=== PATIENT | female | born 1945 | race Caucasian/White ===

== ENCOUNTER 2018-03-07 08:32 | Outpatient (CLI) | payer OTHER, MEDICARE, BC ==
[~2018-03-07 08:32] MED LIST: CYAN-19 PO; ERGO500014 PO; ESTR1PAT TD; LEVO75TA PO; OMEP20CA4 PO
[2018-03-07 09:59] LABS: BASOPHILS % (AUTO) 0.5 % (0-1); EOSINOPHILS # (AUTO) 0.1 X10'3 (0-0.9); EOSINOPHILS % (AUTO) 2.4 % (0-6); HEMATOCRIT 39.8 % (35.0-45.0); HEMOGLOBIN 13.8 g/dl (12.0-16.0); LYMPHOCYTES # (AUTO) 1.8 X10'3 (1.1-4.8); LYMPHOCYTES % (AUTO) 32.5 % (21-51); MEAN CORPUSCULAR HEMOGLOBIN 32.4 PG (27.0-31.0); MEAN CORPUSCULAR HGB CONC 34.6 % (33.0-36.5); MEAN CORPUSCULAR VOLUME 93.5 FL (78-98); MEAN PLATELET VOLUME 10.2 FL (7.4-10.4); MONOCYTES # (AUTO) 0.5 X10'3 (0-0.9); MONOCYTES % (AUTO) 8.8 % (2-12); NEUTROPHILS # (AUTO) 3.2 X10'3 (1.8-7.7); NEUTROPHILS % (AUTO) 55.8 % (42-75); PLATELET COUNT 232 X10'3 (140-440); RED BLOOD COUNT 4.26 X10'6 (4.20-5.60); RED CELL DISTRIBUTION WIDTH 13.7 % (11.5-14.5); WHITE BLOOD COUNT 5.7 X10'3 (4.5-11.0)
[2018-03-07 10:23] LABS: ALANINE AMINOTRANSFERASE 51 U/L (12-78); ALBUMIN 3.7 G/DL (3.4-5.0); ALBUMIN/GLOBULIN RATIO 1.1 (1.1-1.5); ALKALINE PHOSPHATASE 70 IU/L (46-116); ANION GAP 5 (8-16); ASPARTATE AMINO TRANSFERASE 25 U/L (10-37); BILIRUBIN,TOTAL 0.4 MG/DL (0.1-1.0); BLOOD UREA NITROGEN 17 MG/DL (7-18); BUN/CREATININE RATIO 24.6 (6.6-38.0); CALCIUM 9.1 MG/DL (8.5-10.1); CHLORIDE 105 MMOL/L (99-107); CHOL/HDL RATIO 3.6 (0.00-4.99); CHOLESTEROL 205 MG/DL (0-200); CREATININE 0.69 MG/DL (0.40-0.90); GLUCOSE 89 MG/DL (70-104); HDL CHOLESTEROL 57 MG/DL (35-60); LDL CHOLESTEROL 123 MG/DL (50-100); SODIUM 143 MMOL/L (135-145); TOTAL CARBON DIOXIDE 32.9 MMOL/L (24-32); TOTAL PROTEIN 7.1 G/DL (6.4-8.2); TRIGLYCERIDES 69 MG/DL (20-135); eGFR 84 ML/MIN
[2018-03-07 10:33] LABS: CLARITY,URINE CLEAR (Clear); COLOR,URINE YELLOW (Yellow); GLUCOSE, URINE NEGATIVE (Neg); KETONES,URINE NEGATIVE (Neg); LEUKOCYTE ESTERASE ,URINE NEGATIVE (Neg); NITRITES, URINE NEGATIVE (Neg); OCCULT BLOOD,URINE NEGATIVE (Neg); PROTEIN,URINE NEGATIVE (Neg); UROBILINOGEN,URINE 0.2 E.U/dL (0.2-1.0)
[2018-03-07 10:34] LABS: UA COLLECTION TYPE CLN CATCH MIDSTREAM
== END 2018-03-07 23:59 | disposition home or self-care (01) ==
LOC: LAB 08:32
PROVIDERS: ATTEND Family Medicine
DX: Z00.01 Encounter for general adult medical examination with abnormal findings (principal); R79.89 Other specified abnormal findings of blood chemistry; Z85.828 Personal history of other malignant neoplasm of skin
CPT/HCPCS: 36415; 80053; 80061; 81003; 84439; 84443; 85025

== ENCOUNTER 2018-05-04 09:03 | Day surgery (SDC) | payer OTHER, BC, MEDICARE ==
[~2018-05-04] VITALS: Ht 160 cm; Wt 60.0 kg
[2018-05-04 09:12] VITALS: BP 146/79
[2018-05-04] MEDS ORDERED: ACET-812 PO (09:17)
[2018-05-04] MEDS ORDERED: LEVO50TA8 PO (09:21)
[2018-05-04] MEDS ORDERED: MIDAZolam 5mg/5ml vial ONE (09:32)
[2018-05-04] MEDS ORDERED: fentaNYL/PF 50MCG/1 ML 2ML syringe ONE (09:32)
[2018-05-04 10:24] VITALS: BP 117/64
[2018-05-04 10:34] VITALS: BP 107/56
[2018-05-04 10:44] VITALS: BP 112/63
[2018-05-04 10:54] VITALS: BP 115/64
== END 2018-05-04 11:13 | disposition home or self-care (01) ==
LOC: GI LAB 09:03
PROVIDERS: ATTEND Internal Medicine Gastroenterology
DX: Z12.11 Encounter for screening for malignant neoplasm of colon (principal); K57.30 Diverticulosis of large intestine without perforation or abscess without bleeding; K63.89 Other specified diseases of intestine; K58.9 Irritable bowel syndrome, unspecified; K21.9 Gastro-esophageal reflux disease without esophagitis; M19.90 Unspecified osteoarthritis, unspecified site; Z90.710 Acquired absence of both cervix and uterus; Z79.891 Long term (current) use of opiate analgesic; Z79.899 Other long term (current) drug therapy; Z72.89 Other problems related to lifestyle
CPT/HCPCS: 45378; 99152; J2250; J3010; J7030; 99153; A4620; G0500

== ENCOUNTER 2019-02-02 04:07 | Outpatient (CLI) | payer SELFPAY ==
[~2019-02-02 04:07] MED LIST changes: +ACET-812 PO; +LEVO50TA8 PO; -LEVO75TA PO; -OMEP20CA4 PO
[2019-02-02 09:38] LABS: HEMOGLOBIN A1C 5.6 % (4.5-6.2)
[2019-02-02 09:52] LABS: CHOL/HDL RATIO 2.97 (0.00-4.99)
== END 2019-02-02 23:59 | disposition home or self-care (01) ==
LOC: HW HEART 04:07
DX: Z13.6 Encounter for screening for cardiovascular disorders (principal)
CPT/HCPCS: 36415

== ENCOUNTER 2019-03-02 10:06 | Outpatient (CLI) | payer BC ==
[2019-03-02 11:56] LABS: BASOPHILS % (AUTO) 0.5 % (0-1); EOSINOPHILS # (AUTO) 0.1 X10'3 (0-0.9); EOSINOPHILS % (AUTO) 2.2 % (0-6); HEMATOCRIT 41.3 % (35.0-45.0); HEMOGLOBIN 13.6 g/dl (12.0-16.0); LYMPHOCYTES # (AUTO) 1.5 X10'3 (1.1-4.8); LYMPHOCYTES % (AUTO) 32.3 % (21-51); MEAN CORPUSCULAR HEMOGLOBIN 31.5 PG (27.0-31.0); MEAN CORPUSCULAR VOLUME 95.6 FL (78-98); MEAN PLATELET VOLUME 9.9 FL (7.4-10.4); MONOCYTES # (AUTO) 0.4 X10'3 (0-0.9); MONOCYTES % (AUTO) 8.5 % (2-12); NEUTROPHILS # (AUTO) 2.7 X10'3 (1.8-7.7); NEUTROPHILS % (AUTO) 56.5 % (42-75); PLATELET COUNT 242 X10'3 (140-440); RED BLOOD COUNT 4.33 X10'6 (4.20-5.60); RED CELL DISTRIBUTION WIDTH 13.4 % (11.5-14.5); WHITE BLOOD COUNT 4.8 X10'3 (4.5-11.0)
[2019-03-02 12:24] LABS: ALANINE AMINOTRANSFERASE 32 U/L (12-78); ALBUMIN 3.7 G/DL (3.4-5.0); ALBUMIN/GLOBULIN RATIO 1.2 (1.1-1.5); ALKALINE PHOSPHATASE 68 IU/L (46-116); ANION GAP 3 (8-16); ASPARTATE AMINO TRANSFERASE 22 U/L (10-37); BILIRUBIN,TOTAL 0.3 MG/DL (0.1-1.0); BLOOD UREA NITROGEN 19 MG/DL (7-18); BUN/CREATININE RATIO 33.3 (6.6-38.0); CALCIUM 9.4 MG/DL (8.5-10.1); CHLORIDE 107 MMOL/L (99-107); CREATININE 0.57 MG/DL (0.40-0.90); GLUCOSE 83 MG/DL (70-104); POTASSIUM 3.9 MMOL/L (3.5-5.1); SODIUM 141 MMOL/L (135-145); TOTAL CARBON DIOXIDE 30.7 MMOL/L (24-32); TOTAL PROTEIN 6.8 G/DL (6.4-8.2); eGFR > 90 ML/MIN
== END 2019-03-02 23:59 | disposition home or self-care (01) ==
LOC: LAB 10:06
PROVIDERS: ATTEND Family Medicine
DX: Z00.00 Encounter for general adult medical examination without abnormal findings (principal); Z90.710 Acquired absence of both cervix and uterus; Z79.899 Other long term (current) drug therapy
CPT/HCPCS: 36415; 80053; 82607; 82746; 84439; 84443; 85025

== ENCOUNTER 2019-08-14 11:23 | Outpatient (CLI) | payer OTHER, BC ==
[~2019-08-14 11:23] MED LIST changes: -CYAN-19 PO; +CYAN100019 PO
== END 2019-08-14 23:59 | disposition home or self-care (01) ==
LOC: RAD 11:23
PROVIDERS: ATTEND Family Medicine
DX: M25.421 Effusion, right elbow (principal)
CPT/HCPCS: 73080

== ENCOUNTER 2022-10-18 14:20 | Emergency (ER) | payer MEDICARE, BC ==
[~2022-10-18] VITALS: Ht 160 cm; Wt 69.6 kg
[2022-10-18 15:07] VITALS: BP 186/76
[2022-10-18] MEDS ORDERED: ondansetron 4mg rapidly disintigrating tab PO ONE (15:55)
== END 2022-10-18 17:18 | disposition home or self-care (01) ==
LOC: ER 14:21
DX: S00.83XA Contusion of other part of head, initial encounter (principal); Z90.49 Acquired absence of other specified parts of digestive tract; Z79.899 Other long term (current) drug therapy; X58.XXXA Exposure to other specified factors, initial encounter; Y93.89 Activity, other specified; Y92.89 Other specified places as the place of occurrence of the external cause; Y99.8 Other external cause status
CPT/HCPCS: 70450; 72125; 99284

== ENCOUNTER 2023-12-28 05:29 | Day surgery (SDC) | payer MEDICARE, BC ==
[2023-12-21 12:07] LABS: BASOPHILS % (AUTO) 0.9 % (0-1); EOSINOPHILS # (AUTO) 0.1 X10'3 (0-0.9); EOSINOPHILS % (AUTO) 1.7 % (0-6); LYMPHOCYTES # (AUTO) 1.5 X10'3 (1.1-4.8); LYMPHOCYTES % (AUTO) 31.4 % (21-51); MEAN CORPUSCULAR HEMOGLOBIN 31.6 PG (27.0-31.0); MEAN CORPUSCULAR HGB CONC 32.8 g/dL (33.0-36.5); MEAN CORPUSCULAR VOLUME 96.3 FL (78-98); MEAN PLATELET VOLUME 9.3 FL (7.4-10.4); MONOCYTES # (AUTO) 0.4 X10'3 (0-0.9); NEUTROPHILS # (AUTO) 2.7 X10'3 (1.8-7.7); PRE OP HEMATOCRIT 43.5 % (35.0-45.0); PRE OP HEMOGLOBIN 14.3 g/dL (12.0-16.0); PRE OP PLATELET COUNT 291 X10'3 (140-440); PRE OP WHITE BLOOD COUNT 4.7 10'3 (4.8-10.8); RED BLOOD COUNT 4.52 X10'6 (4.20-5.60); RED CELL DISTRIBUTION WIDTH 13.6 % (11.5-14.5)
[2023-12-21 12:41] LABS: ALBUMIN/GLOBULIN RATIO 1.2 (1.1-1.5); ALKALINE PHOSPHATASE 58 IU/L (46-116); BLOOD UREA NITROGEN 10 MG/DL (7-18); BUN/CREATININE RATIO 15.9 (10.0-20.0); CHLORIDE 105 MMOL/L (99-107); CREATININE 0.63 MG/DL (0.40-0.90); FREE T4 (FREE THYROXINE) 1.23 NG/DL (0.73-1.40); PRE OP ALT 33 U/L (30-65); PRE OP ANION GAP 7 (8-16); PRE OP AST 25 U/L (10-37); PRE OP BILIRUB, TOTAL 0.4 MG/DL (0.0-1.0); PRE OP GLUCOSE 89 MG/DL (70-104); PRE OP SODIUM 141 MMOL/L (135-145); THYROID STIMULATING HORMONE 1.52 ulU/ml (0.34-4.50); TOTAL CARBON DIOXIDE 28.7 MMOL/L (24-32); TOTAL PROTEIN 7.3 G/DL (6.4-8.2); eGFR > 90 ML/MIN
[2023-12-28] VITALS (16 sets, daily range): BP systolic 130–168; BP diastolic 64–84; PULSE 55–80; RESP 11–16; TEMP 97.9; O2SAT 97–100
[~2023-12-28] VITALS: Ht 157.5 cm; Wt 57.6 kg
[~2023-12-28 05:29] MED LIST changes: +CHOL500050 PO; -CYAN100019 PO; +DOCU100C40 PO; -ERGO500014 PO; +EZET10TA48 PO; +GABA300C PO; +LUBI24CA9 PO; +SENN-263 PO; +TIRZ10PE SQ; +TRAM50TA2 PO
[2023-12-28] MEDS ORDERED: ringers solution, lacted 1,000 ML IV SCH ×2 (05:30→07:55)
[2023-12-28] MEDS ORDERED: cefazolin 2gm/D5W 100mL 100 ML IV ONE (05:30)
[2023-12-28] MEDS ORDERED: famotidine 20mg tablet PO ONE (05:30)
[2023-12-28] MEDS ORDERED: BUPIVAcaine 2.5mg/ml inj 50ml vial (contains preservative) ONE (07:11)
[2023-12-28] MEDS ORDERED: neostigmine methylsulfate 1 MG/ML 10ml vial ONE (07:35)
[2023-12-28] MEDS ORDERED: glycopyrrolate 0.2mg/ml inj ONE (07:35)
[2023-12-28] MEDS ORDERED: rocuronium 10mg/ml inj IV ONE (07:35)
[2023-12-28] MEDS ORDERED: sevoflurane 250ml liquid IH ONE (07:35)
[2023-12-28] MEDS ORDERED: fentaNYL/PF 50MCG/1 ML 2ML syringe ONE (07:41)
[2023-12-28] MEDS ORDERED: midazolam 1 mg/ML 2ml injection ONE (07:41)
[2023-12-28] MEDS ORDERED: morphine 2 MG/ML inj. syringe IV PRN (07:55)
[2023-12-28] MEDS ORDERED: labetalol 20mg/4ml (5mg/ml) syringe IV PRN (07:55)
[2023-12-28] MEDS ORDERED: proCHLORperazine 10 MG/2 ml inj IV PRN (07:55)
[2023-12-28] MEDS ORDERED: morphine 4 MG/ML inj SYRINge IV PRN (07:55)
[2023-12-28] MEDS ORDERED: ondansetron/PF 4mg/2ml inj IV PRN (07:55)
[2023-12-28] MEDS ORDERED: enalaprilat dihydrate 2.5mg/2ml vial IV PRN (07:55)
[2023-12-28] MEDS ORDERED: meperidine/PF 25mg/ml syringe IV PRN ×3 (07:55)
[2023-12-28] MEDS ORDERED: LIDOcaine 2% (20mg/ml) 5ml vial ONE (08:03)
[2023-12-28] MEDS ORDERED: propofol inj 20 ML IV ONE (08:03)
[2023-12-28] MEDS ORDERED: dexamethasone sod phosphate 4mg/ml inj. ONE (08:13)
[2023-12-28] MEDS ORDERED: ondansetron/PF 4mg/2ml inj ONE (08:13)
[2023-12-28] MEDS ORDERED: BUPIVAcaine 2.5mg/ml inj 50ml vial (contains preservative) SQ ONE (08:28)
[2023-12-28] MEDS ORDERED: traMADol 50MG tablet PO ONE (09:50)
== END 2023-12-28 12:00 | disposition home or self-care (01) ==
LOC: PAS 05:29
PROVIDERS: ATTEND Surgery
DX: K40.90 Unilateral inguinal hernia, without obstruction or gangrene, not specified as recurrent (principal); E03.9 Hypothyroidism, unspecified; E78.5 Hyperlipidemia, unspecified; E11.9 Type 2 diabetes mellitus without complications; M19.90 Unspecified osteoarthritis, unspecified site; G89.29 Other chronic pain; Z87.19 Personal history of other diseases of the digestive system; Z79.899 Other long term (current) drug therapy; Z72.89 Other problems related to lifestyle; Z90.710 Acquired absence of both cervix and uterus; Z90.722 Acquired absence of ovaries, bilateral; Z98.890 Other specified postprocedural states; Z82.5 Family history of asthma and other chronic lower respiratory diseases; Z80.0 Family history of malignant neoplasm of digestive organs
CPT/HCPCS: 36415; 49650; 80053; 82948; 84439; 84443; 85025; 93005; C1781; J0690; J1100; J2175; J2250; J2405; J2704; J2710; J3010; J3490; J7030; J7120; Z7506; Z7508; Z7512; A4215; A4618; C1758

== ENCOUNTER 2024-11-12 07:14 | Outpatient (CLI) | payer MEDICARE, BC ==
[~2024-11-12 07:14] MED LIST changes: -SENN-263 PO; +SENN-360 PO
[2024-11-12] MEDS ORDERED: GADOTERATE MEGLUMINE 7.5 MMOL/15 ML VIAL IV ONE (20:10)
== END 2024-11-12 23:59 | disposition home or self-care (01) ==
LOC: MRI02 07:14
PROVIDERS: ATTEND Physician Assistant
DX: I67.82 Cerebral ischemia (principal); D32.9 Benign neoplasm of meninges, unspecified
CPT/HCPCS: 70553; A9575